=== PATIENT | male | born 1995 | race African-American/Black ===

== ENCOUNTER 2017-08-27 22:16 | Emergency (ER) | payer BC ==
[~2017-08-27] VITALS: Ht 185.4 cm; Wt 80.0 kg
[2017-08-27 22:19] VITALS: BP 170/90; PULSE 107; RESP 20; TEMP 98.9; O2SAT 98
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
[2017-08-27] MEDS ORDERED: ERYTHROMYCIN 0.5% OPTH OINT 3.5 GM TUBO LEFT EYE ONE (23:00)
== END 2017-08-27 23:15 | disposition left against medical advice (07) ==
LOC: NEPD 22:16
DX: H57.12 Ocular pain, left eye (principal)
CPT/HCPCS: 99281